=== PATIENT | male | born 1950 | race Caucasian/White ===

== ENCOUNTER 2017-02-14 09:11 | Inpatient (IN) | payer OTHER ==
[~2017-02-14] VITALS: Ht 189.2 cm; Wt 97.2 kg
[2017-02-14 10:22] LABS: INTER. NORMALIZED RATIO 1.1; PROTHROMBIN TIME 11.8 SEC (10.2-12.9)
[2017-02-14 10:24] LABS: HEMATOCRIT 45.3 % (38.0-50.0); MCHC 31.8 G/DL (30.0-36.0); MCV 84.8 FL (86-99); PLATELET COUNT 67 K/uL (156-360); RBC DIS.WIDTH-CV 14.5 % (11.8-14.6); RBC DIS.WIDTH-SD 44.6 % (39-53); RED BLOOD COUNT 5.34 M/uL (4.00-5.50); WHITE BLOOD COUNT 7.4 K/uL (4.1-10.2)
[2017-02-14 10:29] LABS: CHLORIDE 105 mEq/L (99-109); POTASSIUM 4.3 mEq/L (3.7-5.4); SODIUM 139 mEq/L (136-147)
[2017-02-14 10:31] LABS: GLUCOSE 118 mg/dL (70-99); PTT 35.5 SEC (25-37)
[2017-02-14 10:33] LABS: ANION GAP 14 MEQ/L (2-14)
[2017-02-14 10:35] LABS: GFR ESTIMATE (CALCULATED) > 59 mL/min/
[2017-02-14 10:36] LABS: UREA NITROGEN (BUN) 18 mg/dL (9-23)
[2017-02-14 10:38] LABS: TROP-I INTERPRETATION NEGATIVE; TROPONIN-I < 0.01 ng/mL (0.0-0.30)
[2017-02-14] MEDS ORDERED: ADVIL200 MG PO (14:05)
[2017-02-14 18:34] VITALS: BP 177/92
[2017-02-14 20:05] VITALS: BP 185/101
[2017-02-14 23:42] VITALS: BP 153/91
[2017-02-15 04:01] VITALS: BP 173/95
[2017-02-15 05:57] LABS: ALKALINE PHOSPHATASE 40 IU/L (3-129); ANION GAP 5 MEQ/L (2-14); CHLORIDE 102 MEQ/L (99-109); GAMMA-GT 25 IU/L (4-73); GFR ESTIMATE (CALCULATED) > 59 mL/min/; GLUCOSE 116 mg/dL (70-99); POTASSIUM 4.2 MEQ/L (3.7-5.4); SAMPLE HEMOLYSIS CHECK 0; SAMPLE ICTERIC CHECK 0; SAMPLE LIPEMIA CHECK 0; SODIUM 135 MEQ/L (136-147); TOTAL BILIRUBIN 0.9 MG/DL (0.0-1.0); UREA NITROGEN (BUN) 19 mg/dL (9-23)
[2017-02-15 06:23] LABS: MCH 26.4 PG (29.0-34.0); MCHC 31.5 G/DL (30.0-36.0); MCV 83.8 FL (86-99); PLATELET COUNT 65 K/uL (156-360); RBC DIS.WIDTH-CV 14.4 % (11.8-14.6); RBC DIS.WIDTH-SD 43.8 % (39-53); RED BLOOD COUNT 4.89 M/uL (4.00-5.50); WHITE BLOOD COUNT 7.1 K/uL (4.1-10.2)
[2017-02-15 07:41] VITALS: BP 167/96
[2017-02-15 11:27] LABS: HBSG INDEX 0.21
[2017-02-15 11:28] LABS: ANTI-HEPATITIS A VIRUS (IGM) Nonreactive; HAV INDEX 0.14
[2017-02-15 11:29] LABS: ANTI-HEPATITIS B CORE (IGM) Nonreactive; HBC IgM INDEX 0.07
[2017-02-15 11:39] VITALS: BP 169/95
[2017-02-15 16:37] VITALS: BP 165/98
[2017-02-15] MEDS ORDERED: OXYCODONE HCL5 MG PO ×2 (17:24→17:40)
[2017-02-15] MEDS ORDERED: NICOTINE PATCH1 EAC2 TD (17:24)
[2017-02-15] MEDS ORDERED: LISINOPRIL20 MG PO (17:24)
[2017-02-16 19:58] LABS: HCV RNA (IU/mL) <15 IU/mL (<15)
[2017-02-17 09:10] LABS: HCV RNA (LOG IU/mL) <1.18 (<1.18)
== END 2017-02-15 18:00 | disposition home or self-care (01) | DRG 906 ==
LOC: EME 09:11 → 4EAST 12:02 → EDOF 12:02 → ENRESERV 12:09 → 4EAST 18:01
PROVIDERS: Internal Medicine Hematology & Oncology; Nurse Practitioner Family; Surgery
PROC: 0X6V0Z2 Detachment at Right Little Finger, Mid, Open Approach (ICD-10-PCS; principal; 2017-02-15)
PROC: 0X6S0Z0 Detachment at Right Ring Finger, Complete, Open Approach (ICD-10-PCS; principal; 2017-02-15)
DX: S68.624A Partial traumatic transphalangeal amputation of right ring finger, initial encounter (principal); S68.626A Partial traumatic transphalangeal amputation of right little finger, initial encounter; W31.82XA Contact with other commercial machinery, initial encounter; F17.210 Nicotine dependence, cigarettes, uncomplicated; F10.20 Alcohol dependence, uncomplicated; I48.0 Paroxysmal atrial fibrillation; D69.59 Other secondary thrombocytopenia; E63.9 Nutritional deficiency, unspecified; F12.90 Cannabis use, unspecified, uncomplicated; Y90.9 Presence of alcohol in blood, level not specified; I10 Essential (primary) hypertension; D47.3 Essential (hemorrhagic) thrombocythemia; E66.3 Overweight; Z88.6 Allergy status to analgesic agent; Y92.63 Factory as the place of occurrence of the external cause; Z91.19 Patient's noncompliance with other medical treatment and regimen; Z68.27 Body mass index [BMI] 27.0-27.9, adult; Z73.3 Stress, not elsewhere classified
CPT/HCPCS: 71020; 73130; 76705; 80048; 80053; 80074; 82607; 82746; 82977; 84439; 84443; 84484; 85027; 85610; 85730; 87522 90; 93005; 99281; 99285; J0690; J1170; J2250; J3010; J3480; J7050; S0020